=== PATIENT | male | born 1975 | race African-American/Black ===

== ENCOUNTER 2018-12-05 13:59 | Inpatient (IN) ==
--- NOTE | 2018-12-05 15:28 | Pulmonology History & Physical ---
<Josué Qiu S - Last Filed: 12/05/18 16:16> Date of Encounter: 12/05/18 Time of Encounter: 15:28 Assessment and Plan (1) DKA (diabetic ketoacidoses) Current visit: Yes Status: Acute Pt presents as a [facility] [facility] transfer in DKA - chronic T2DM on home insulin lispro and NPH, unsure of dosages - pt has c/o nausea and vomiting over the last few days, changes his story of whether he quit taking insulin or not - questionable noncompliance vs viral gastroenteritis precipitating DKA At [facility], pt received initial insulin bolus and 3 L total of 0.9% NS - glucose found to be 839 - initial sodium 118, corrected at 130 Initial blood gas showed pH 7.11, pCO2 <13, pO2 125 Anion gap at 31 Metabolic acidosis secondary to DKA Beta-hydroxybutyric acid >2 UA (+) for ketones, glucose, protein CXR negative for acute cardiopulmonary process Plan: - NPO now - zofran for nausea - SW consulted - VBG pending for 2 hrs - BMP repeat in 2 hrs, if elevated gap then q2hr... if gap has closed can space to q4-q6hr - CBC/BMP in AM with morning labs - magnesium/phosphorus stat - fluids as per DKA protocol, orders for all in for now bolus pt 2L start on 0.45% NS w/o potassium once BG <250, switch to D5 as per protocol orders for fluids with potassium in, nursing staff to switch fluids if next BMP necessitates - continue insulin drip - hold home PO meds - continue telemetry monitoring - HbA1c pending - UDS pending Qualifiers: Diabetes mellitus type: type 2 Diabetes mellitus complication detail: without coma Qualified Code(s): E11.10 - Type 2 diabetes mellitus with ketoacidosis without coma (2) EMILY (acute kidney injury) Current visit: Yes Status: Acute Creatinine from [facility] [facility] 2.71 - baseline appears to be around 0.9-1.1 - likely pre-renal from dehydration and poor PO intake Plan: - monitor BMP - continue IV hydration as above (3) Altered mental status Current visit: Yes Status: Acute Likely secondary to hyperglycemia - see plan as above - obtain UDS to r/o acute intoxication Qualifiers: Altered mental status type: unspecified Qualified Code(s): R41.82 - Altered mental status, unspecified (4) Vomiting Current visit: Yes Status: Acute Zofran 4mg IVP prn nausea. Qualifiers: Vomiting type: unspecified Vomiting Intractability: unspecified Nausea presence: unspecified Qualified Code(s): R11.10 - Vomiting, unspecified (5) Hypertension Current visit: No Status: Chronic Chronic, on cozaar and amlodipine - holding PO meds - will add IVP meds if needed Qualifiers: Hypertension type: essential hypertension Qualified Code(s): I10 - Essential (primary) hypertension (6) GERD (gastroesophageal reflux disease) Current visit: No Status: Chronic On protonix, chronic - home PO meds held Qualifiers: Esophagitis presence: esophagitis presence not specified Qualified Code(s): K21.9 - Gastro-esophageal reflux disease without esophagitis (7) T2DM (type 2 diabetes mellitus) Current visit: Yes Status: Acute T2DM on home insulin - chronic issue - on home lispro and NPH Plan: - no recent HbA1c, pending - see plan as above for DKA Qualifiers: Diabetes mellitus longterm insulin use: with longterm use Diabetes mellitus complication status: with hyperglycemia Qualified Code(s): E11.65 - Type 2 diabetes mellitus with hyperglycemia; Z79.4 - alf (current) use of insulin (8) DVT prophylaxis Current visit: Yes Status: Acute sq heparin History of Present Illness Chief complaint: DKA HPI: Mr. Mitchell is a 43 year old male with PMH of T2DM, HTN and GERD. He is here for DKA from [place] as a transfer. He initially went to [facility] [facility] ED because he started to have flu like symptoms and has been nauseated and vomiting x 2-3 days. He has fe lt weak and lethargic. He said he didn't stop taking his insulin but then states he did stop taking it and appears somewhat confused. He is not oriented to time or place but is oriented to self. He says he takes insulin at home but isn't sure how much. He does appear quite confused but denies intoxication and states he doesn't drink alcohol very often. On further questioning the pt denies any chest pain, active nausea or abd pain, SOB or difficulty breathing. He denies headache and blurry vision. The pt EKG showed EKG shows a relative sinus tachycardia with a rate of 103 bpm MS interval 180 ms. QRS duration 108 ms. QT interval 321 ms QTC 421 ms R axis of -[address]-T wave changes. He was given 3 L of 0.9% NS and was given an insulin bolus. ABG showed pH 7.11, pCO2<13, pO2 125. He was found to have an elevated gap and had multiple electrolyte abnormalities, including hyponatremia and hyperkalmia. Initial CXR showed no acute cardiopulmonary process. UA negative for acute infxn. Past Med Surg Social Fam HX - Past Medical History Medical history: diabetes, GERD, hyperlipidemia, hypertension, seizures Psychiatric history: no psych history - Past Surgical History Surgical History: non-contributory - Social History Smoking Status: Current every day smoker Smokeless Tobacco Status: No Alcohol use: occasionally Drug use: none Medications and Allergies Insulin LISPRO [HumaLOG] 6 unit SQ 2XW 07/18/16 [History] Losartan [Cozaar] 25 mg PO DAILY 07/18/16 [History] Pantoprazole Sodium [Protonix] 40 mg PO DAILY 07/18/16 [History] amLODIPine [Norvasc] 5 mg PO DAILY 07/18/16 [History] Insulin NPH Hum/Reg Insulin Hm [Humulin 70-30 Vial] 20 unit SQ BID 12/05/18 [History] Allergy/AdvReac Type Severity Reaction Status Date / Time No Known Allergies Allergy Verified 12/05/18 11:10 All Systems: The remainder of the systems were reviewed and are negative - Constitutional Constitutional: fatigue, no chills, no fever(s) - EENT Eyes: no loss of vision Nose, mouth and throat: no headache(s) - Cardiovascular Cardiovascular: no chest pain, no chest pain at rest, no dyspnea, no dyspnea on exertion - Respiratory Respiratory: no cough, no dyspnea, no dyspnea on exertion, no excessive phlegm production - Gastrointestinal Gastrointestinal: nausea, vomiting, no abdominal pain - Genitourinary Genitourinary: no urinary frequency, no urinary hesitancy - Integumentary Integumentary: no rash - Neurological Neurological: no dizziness, no weakness - Endocrine Endocrine: fatigue - Hematologic/Lymphatic Hematologic/Lymphatic: no easy bleeding, no easy bruising Physical Examination General appearance: lethargic Eyes: nonicteric ENT: oropharynx dry Effort: mildly labored Auscultation: bilateral: clear Cardiovascular: other (tacycardia, s1s2, cta) Gastrointestinal: soft, non-tender, non-distended Integumentary: normal Extremities: no edema Musculoskeletal: no deformities unable to assess due to mental status other (lethargic male) <Hanane Valentin M - Last Filed: 12/05/18 16:47> Date of Encounter: 12/05/18 History of Present Illness HPI: Mr. Mitchell is a 43 year old male All Systems: The remainder of the systems were reviewed and are negative Physical Examination Vital Signs: Vital Signs, Last 4 Hours Temp Pulse Resp BP Pulse Ox 12/05/18 16:00 107 28 148/81 98 12/05/18 15:00 97.9 F 107 28 134/75 98 - Attending Attestation I examined this patient and my medical decision-making was reviewed with the Resident Physician. I agree with the documented findings, disposition and treatment plan as described except to the extent set forth below. Patient seen and examined. Labs, radiology, chart personally reviewed. Agree with resident's history and physical, assessment, plan with following comments: ADMINISTRATIVE SERVICES DIRECTOR: Patient follows commands, however he has some mental status change which could be encephalopathy Pulmonary: Acceptable oxygenation and ventilation Cardiovascular: stable , however with his electrolyte abnormalities is at risk and that is why he needs to be in ICU GI: Nutrition per dietary and GI prophylaxis per routine. Patient will be nothing by mouth at this time Heme: DVT prophylaxis per routine ID: No evidence of infection Renal; urine out put and renal funtion reviewed area to acute renal injury 8 days prerenal and with aggressive fluid resuscitation explained that will improve. Patient also have acidosis from ketoacidosis. Endorcine: blood glucose is monitored. Patient will be treated according to DKA protocol and monitor his electrolytes carefully. Lines: all lines checked and no evidence of infections Skin: skin care to prevent pressure ulcers per nursing routine care Patient will be monitored in ICU on he will need diabetic education and possibly social sciences instructor and check urine drug tox
[2018-12-05] MEDS ORDERED: *HR* Dextrose 50 % in Water (Syg) 50 ML SYRINGE IVP PRN ×2 (15:29→15:51)
[2018-12-05] MEDS ORDERED: Insulin Human Regular 100 UNIT in 0.9 % Sodium Chloride 100 ML IVC SCH (15:30)
[2018-12-05] MEDS ORDERED: Ondansetron 4 MG/2 ML VIAL IVP PRN (15:47)
[2018-12-05] MEDS ORDERED: D5% in 0.45% NACL 1,000 ML IVC PRN (15:51)
[2018-12-05] MEDS: 0.9 % Sodium Chloride 1,000 ML IVC SCH ×2 (16:24→17:14)
[2018-12-05] MEDS: *HR* Heparin 5,000 UNIT/ML VIAL SQ SCH ×2 (17:06→21:16)
[2018-12-05 17:09] LABS: Amphetamine Screen,Urine Negative ng/mL (Cutoff=1000); Barbiturate Screen,Urine Negative ng/mL (Cutoff=200); Benzodiazepines Screen,Urine Negative ng/mL (Cutoff=200); Cannabinoid Screen,Urine Negative ng/mL (Cutoff = 50); Cocaine Screen,Urine Negative ng/mL (Cutoff= 300); Opiate Screen,Urine Negative ng/mL (Cutoff=300); Phencyclidine Screen,Urine Negative ng/mL (Cutoff=25)
[2018-12-05 17:42] LABS: Calcium 8.3 mg/dL (8.6-10.3); Potassium 4.7 mEq/L (3.5-5.1)
[2018-12-05 17:48] LABS: Magnesium 2.9 mg/dL (1.6-2.6); Phosphorous 2.6 mg/dL (2.7-4.5)
[2018-12-05 18:09] LABS: Estimated Average Glucose 169 mg/dl; Hemoglobin A1C 7.5 %
[2018-12-05] MEDS: 0.9 % Sodium Chloride w KCl 20 MEQ/1,000 ML MLS IVC SCH ×5 (19:45→22:17)
[2018-12-05] MEDS: 0.45 % Sodium Chloride w/KCl 20 MEQ/1,000 ML MLS IVC SCH ×4 (19:47→23:11)
[2018-12-05 21:06] LABS: Calcium 7.6 mg/dL (8.6-10.3)
[2018-12-05] MEDS: D5% in 0.45% NACL w KCl 20 MEQ/1,000 ML MLS IVC PRN (22:18)
[2018-12-06] MEDS: 0.9 % Sodium Chloride w KCl 20 MEQ/1,000 ML MLS IVC SCH ×4 (00:09→04:27)
[2018-12-06] MEDS: 0.45 % Sodium Chloride w/KCl 20 MEQ/1,000 ML MLS IVC SCH ×4 (00:09→04:27)
[2018-12-06 01:06] LABS: BUN/Creatinine Ratio 28 (6-26); Blood Urea Nitrogen 39 mg/dL (6-20); Calcium 7.6 mg/dL (8.6-10.3); Carbon Dioxide 18 mEq/L (23-29); Chloride 110 mEq/L (98-107); Glucose 134 mg/dL (70-105); Osmolality,Calculated 297 (280-300); Potassium 4.3 mEq/L (3.5-5.1); Sodium 138 mEq/L (136-145); eGFR For Non-African Americans 55 (> 60)
[2018-12-06 01:42] LABS: VBG HCO3 19 mEq/L (21-27); VBG PCO2 41 mmHg (41-51); VBG PH 7.27 pH Units (7.32-7.42); VBG PO2 71 mmHg (25-50)
[2018-12-06] MEDS: D5% in 0.45% NACL w KCl 20 MEQ/1,000 ML MLS IVC PRN (02:24)
[2018-12-06 03:49] LABS: VBG HCO3 21 mEq/L (21-27); VBG PCO2 46 mmHg (41-51); VBG PH 7.27 pH Units (7.32-7.42); VBG PO2 41 mmHg (25-50)
[2018-12-06 04:00] LABS: Alanine Aminotransferase 15 Units/L (7-52); Albumin 3.4 g/dL (3.5-5.7); Albumin/Globulin Ratio 1.5 (1.1-2.2); Alkaline Phosphatase 43 Units/L (34-104); Aspartate Amino Transferase 21 Units/L (13-39); BUN/Creatinine Ratio 25 (6-26); Bilirubin,Total 0.6 mg/dL (0.3-1.0); Blood Urea Nitrogen 33 mg/dL (6-20); Calcium 7.9 mg/dL (8.6-10.3); Carbon Dioxide 19 mEq/L (23-29); Chloride 109 mEq/L (98-107); Globulin 2.3 g/dL (2.4-3.5); Glucose 116 mg/dL (70-105); Osmolality,Calculated 290 (280-300); Potassium 4.2 mEq/L (3.5-5.1); Sodium 136 mEq/L (136-145); Total Protein 5.7 g/dL (6.4-8.9); eGFR For Non-African Americans 59 (> 60)
[2018-12-06] MEDS ORDERED: Insulin DETEMIR 100 UNIT/ML X5UNITS SQ SCH (04:58)
[2018-12-06] MEDS: *HR* Heparin 5,000 UNIT/ML VIAL SQ SCH ×3 (05:11→21:35)
--- NOTE | 2018-12-06 06:33 | Pulmonology Progress Note ---
<Josué Qiu S - Last Filed: 12/06/18 11:14> Date of Encounter: 12/06/18 Time of Encounter: 08:03 Assessment and Plan (1) DKA (diabetic ketoacidoses) Current Visit: Yes Status: Resolved Pt presents as a [facility] transfer in DKA - chronic T2DM on home insulin lispro and NPH, unsure of dosages - pt has c/o nausea and vomiting over the last few days, changes his story of whether he quit taking insulin or not - questionable noncompliance vs viral gastroenteritis precipitating DKA At [facility], pt received initial insulin bolus and 3 L total of 0.9% NS - glucose found to be 839 - initial sodium 118, corrected at 130 Labs this morning: sodium 138, potassium 4.3, chloride 110, glucose 134 On admission: Initial blood gas showed pH 7.11, pCO2 <13, pO2 125 - Metabolic acidosis secondary to DKA Anion gap at 31 ---> 10, gap has closed Repeat VBG this morning pH 7.29, pCO2 42, pO2 49, HCO3 20 Beta-hydroxybutyric acid >2 UA (+) for ketones, glucose, protein CXR negative for acute cardiopulmonary process Plan: - ADA diet for breakfast - zofran for nausea - SW consulted - CBC/BMP in AM with morning labs - continue with D5 0.45 until pt is tolerating PO intake - insulin drip d/c, has been switched over to LDSS and SQ insulin - hold home PO meds - pt to be transferred to out of ICU this morning Qualifiers: Diabetes mellitus type: type 2 Diabetes mellitus complication detail: with out coma Qualified Code(s): E11.10 - Type 2 diabetes mellitus with ketoac idosis without coma (2) EMILY (acute kidney injury) Current Visit: Yes Status: Acute Creatinine from [facility] 2.71 - baseline appears to be around 0.9-1.1 - likely pre-renal from dehydration and poor PO intake Creatinine improved to 1.40 this morning, improving Plan: - monitor BMP - continue IV hydration as above (3) Altered mental status Current Visit: Yes Status: Resolved Likely secondary to hyperglycemia - see plan as above - UDS negative Qualifiers: Altered mental status type: unspecified Qualified Code(s): R41.82 - Altered mental status, unspecified (4) Vomiting Current Visit: Yes Status: Resolved Zofran 4mg IVP prn nausea. Qualifiers: Vomiting type: unspecified Vomiting Intractability: unspecified Nausea presence: unspecified Qualified Code(s): R11.10 - Vomiting, unspecified (5) Hypertension Current Visit: No Status: Chronic Chronic, on cozaar and amlodipine - restart norvasc Qualifiers: Hypertension type: essential hypertension Qualified Code(s): I10 - Essential (primary) hypertension (6) GERD (gastroesophageal reflux disease) Current Visit: No Status: Chronic On protonix, chronic - restart protonix Qualifiers: Esophagitis presence: esophagitis presence not specified Qualified Code(s): K21.9 - Gastro-esophageal reflux disease without esophagitis (7) T2DM (type 2 diabetes mellitus) Current Visit: Yes Status: Acute T2DM on home insulin - chronic issue - on home lispro and NPH HbA1c 7.5% Plan: - see plan as above for DKA - ADA diet - LDSS, sq insulin 10 U BID Qualifiers: Diabetes mellitus care home insulin use: with care home use Diabetes mellitus complication status: with hyperglycemia Qualified Code(s): E11.65 - Type 2 diabetes mellitus with hyperglycemia; Z79.4 - prison (current) use of insulin (8) DVT prophylaxis Current Visit: Yes Status: Acute sq heparin (9) Tobacco abuse Current Visit: No Status: Chronic current everyday smoker. Subjective Principal diagnosis: DKA, T2DM Interval history: Patient is seen at bedside. He had no acute overnight events. He is still quite lethargic. No acute complaints or concerns. Objective PUL Vital signs: Last Vital Signs Temp 99.0 F 12/06/18 03:00 Pulse 90 12/06/18 06:00 Resp 30 12/06/18 06:00 BP 132/83 12/06/18 06:00 Pulse Ox 98 12/06/18 06:00 General appearance: no acute distress, lethargic Eyes: nonicteric ENT: oropharynx moist Effort: normal Auscultation: bilateral: clear Cardiovascular: regular rate and rhythm Gastrointestinal: soft, non-tender, non-distended Integumentary: normal Extremities: no edema Musculoskeletal: no deformities normal mental status, non-focal exam other (lethargic) Results - Laboratory Findings CBC and BMP: 12/06/18 03:30 Abnormal lab findings: Abnormal lab results VBG pH 7.27 pH Units (7.32-7.42) L 12/06/18 03:46 Chloride 109 mEq/L (98-107) H 12/06/18 03:30 Carbon Dioxide 19 mEq/L (23-29) L 12/06/18 03:30 BUN 33 mg/dL (6-20) H 12/06/18 03:30 Creatinine 1.32 mg/dL (0.70-1.30) H 12/06/18 03:30 Est GFR (Non-Af Amer) 59 (> 60) L 12/06/18 03:30 Glucose 116 mg/dL (70-105) H 12/06/18 03:30 POC Glucose 133 mg/dL (70-99) H 12/06/18 00:05 Hemoglobin A1c 7.5 % (-5.6) H 12/05/18 16:46 Calcium 7.9 mg/dL (8.6-10.3) L 12/06/18 03:30 Phosphorus 2.6 mg/dL (2.7-4.5) L 12/05/18 16:46 Magnesium 2.9 mg/dL (1.6-2.6) H 12/05/18 16:46 Serum Total Protein 5.7 g/dL (6.4-8.9) L 12/06/18 03:30 Albumin 3.4 g/dL (3.5-5.7) L 12/06/18 03:30 Globulin 2.3 g/dL (2.4-3.5) L 12/06/18 03:30 - Clinical Findings Intake & Output: Intake & Output 12/05/18 12/05/18 12/06/18 15:59 23:59 07:59 Intake Total 3082.3 / 3082.3 1038 / 1038 Output Total 1550 / 1550 1370 / 1370 Balance 1532.3 / 1532.3 -332 / -332 Weight 97.3 kg 97.8 kg Consult Discharge Plan - Plan Referrals: NONE,PCP [Primary Care Provider] - <Hanane Valentin - Last Filed: 12/06/18 16:38> Date of Encounter: 12/06/18 Objective PUL Vital signs: Last Vital Signs Temp 98.2 F 12/06/18 16:03 Pulse 96 12/06/18 16:03 Resp 16 12/06/18 16:03 BP 130/85 12/06/18 16:03 Pulse Ox 96 12/06/18 16:03 Results - Laboratory Findings CBC and BMP: 12/06/18 03:30 Abnormal lab findings: Abnormal lab results VBG pH 7.29 pH Units (7.32-7.42) L 12/06/18 06:37 VBG HCO3 20 mEq/L (21-27) L 12/06/18 06:37 Chloride 109 mEq/L (98-107) H 12/06/18 03:30 Carbon Dioxide 19 mEq/L (23-29) L 12/06/18 03:30 BUN 33 mg/dL (6-20) H 12/06/18 03:30 Creatinine 1.32 mg/dL (0.70-1.30) H 12/06/18 03:30 Est GFR (Non-Af Amer) 59 (> 60) L 12/06/18 03:30 Glucose 116 mg/dL (70-105) H 12/06/18 03:30 POC Glucose 133 mg/dL (70-99) H 12/06/18 00:05 Hemoglobin A1c 7.5 % (-5.6) H 12/05/18 16:46 Calcium 7.9 mg/dL (8.6-10.3) L 12/06/18 03:30 Phosphorus 2.6 mg/dL (2.7-4.5) L 12/05/18 16:46 Magnesium 2.9 mg/dL (1.6-2.6) H 12/05/18 16:46 Serum Total Protein 5.7 g/dL (6.4-8.9) L 12/06/18 03:30 Albumin 3.4 g/dL (3.5-5.7) L 12/06/18 03:30 Globulin 2.3 g/dL (2.4-3.5) L 12/06/18 03:30 - Clinical Findings Intake & Output: Intake & Output 12/06/18 12/06/18 12/06/18 07:59 15:59 23:59 Intake Total 2037 360 / 360 0 / 0 Output Total 1370 / 1370 Balance 668 / 668 360 / 360 0 / 0 Weight 97.8 kg - Attending Attestation I examined this patient and my medical decision-making was reviewed with the Resident Physician. I agree with the documented findings, disposition and treatment plan as described except to the extent set forth below. Patient seen and examined. Labs, radiology, chart personally reviewed. Agree with resident's history and physical, assessment, plan with following comments: WHANAU SUPPORT WORKER: Patient follows commands, Pulmonary: Acceptable oxygenation and ventilation Cardiovascular: stable GI: Nutrition per dietary and GI prophylaxis per routine and dietary to see patient Heme: DVT prophylaxis per routine ID: No evidence of any infectious source. Renal; urine out put and renal funtion reviewed Endorcine: blood glucose is monitored. Patient has completed DKA protocol and an ion gap has closed and feeling better. Resume home dose insulin and adjust if necessary. Lines: all lines checked and no evidence of infections Skin: skin care to prevent pressure ulcers per nursing routine care Patient stable to be transferred to the floor.
[2018-12-06 06:39] LABS: VBG HCO3 20 mEq/L (21-27); VBG PCO2 42 mmHg (41-51); VBG PH 7.29 pH Units (7.32-7.42); VBG PO2 49 mmHg (25-50)
[2018-12-06] MEDS ORDERED: amLODIPine 5 MG TABLET PO SCH (09:00)
[2018-12-06] MEDS ORDERED: Ondansetron 4 MG/2 ML VIAL IVP PRN (10:09)
[2018-12-06] MEDS ORDERED: *HR* Dextrose 50 % in Water (Syg) 50 ML SYRINGE IVP PRN (10:09)
[2018-12-06] MEDS ORDERED: D5% in Water 1,000 ML IVC PRN (10:16)
[2018-12-06] MEDS ORDERED: Dextrose Gel 15 GM/37.5 ML TUBE PO PRN ×2 (10:16)
[2018-12-06] MEDS ORDERED: Dextrose 4 GM Chewable Tablets PO PRN ×2 (10:16)
[2018-12-06] MEDS ORDERED: Insulin LISPRO 300 UNITS/3 ML VIAL SQ SCH (11:30)
[2018-12-06] MEDS: Insulin LISPRO 300 UNITS/3 ML VIAL SQ SCH ×2 (11:57→16:06)
[2018-12-06] MEDS: Insulin DETEMIR 100 UNIT/ML X5UNITS SQ SCH (21:35)
[2018-12-07 04:45] LABS: Basophils % 0.2 %; Eosinophils # 0.2 K/mcL (0.0-0.6); Eosinophils % 3.4 %; Hematocrit 39.8 % (37.5-50.1); Hemoglobin 13.5 g/dL (12.9-16.9); Immature Granulocytes % 0.2 % (0-4); Lymphocytes # 0.7 K/mcL (0.6-4.6); Lymphocytes % 12.3 %; Mean Corpuscular HGB Conc 33.9 g/dL (31.6-35.5); Mean Corpuscular Hemoglobin 29.7 pg (28.0-33.3); Mean Corpuscular Volume 87.7 fL (83.0-100.0); Mean Platelet Volume 10.6 fL (9.4-12.4); Monocytes # 0.8 K/mcL (0.0-1.3); Monocytes % 14.2 %; Neutrophils # 3.9 K/mcL (1.6-8.9); Platelet Count 172 K/mcL (140-400); Red Blood Count 4.54 M/mcL (4.19-5.50); Red Cell Distribution Width 11.5 % (11.5-14.5); Segmented Neutrophils % 69.7 %
[2018-12-07 05:04] LABS: BUN/Creatinine Ratio 14 (6-26); Blood Urea Nitrogen 16 mg/dL (6-20); Carbon Dioxide 22 mEq/L (23-29); Chloride 98 mEq/L (98-107); Glucose 340 mg/dL (70-105); Osmolality,Calculated 287 (280-300); Sodium 131 mEq/L (136-145); eGFR For Non-African Americans > 60 (> 60)
[2018-12-07] MEDS: *HR* Heparin 5,000 UNIT/ML VIAL SQ SCH ×3 (06:13→21:53)
[2018-12-07] MEDS: Insulin DETEMIR 100 UNIT/ML X5UNITS SQ SCH (08:34)
[2018-12-07] MEDS: amLODIPine 5 MG TABLET PO SCH (08:34)
[2018-12-07] MEDS: Insulin LISPRO 300 UNITS/3 ML VIAL SQ SCH ×3 (08:35→17:21)
[2018-12-07] MEDS ORDERED: Famotidine 20 MG TABLET PO ONE (14:57)
[2018-12-07] MEDS: Insulin NPH/REG 70/30 100 UNIT/ML (x5UNIT) SQ SCH (17:20)
--- NOTE | 2018-12-07 19:41 | Internal Med Progress Note ---
Hospitalist Progress Note - Encounter Date of Encounter: 12/07/18 Time of Encounter: 11:00 - Subjective Interval History: She presented with DKA secondary to not taking his insulin as reports of running out due to financial barriers. DKA has resolved Case management assisting with financial barriers Will place patient on 70/30 insulin this evening for monitoring - Exam Vitals: Temp Pulse Resp BP Pulse Ox 98.0 F 94 17 144/95 94 12/07/18 15:45 12/07/18 15:45 12/07/18 15:45 12/07/18 15:45 12/07/18 15:45 Exam: Gen.: Nonacute distress, alert and oriented 3 ENT: Mucosal membranes moist Respiratory: Lungs are clear to auscultation bilaterally without any wheezing rhonchi or rales Cardiovascular: Normal S1 and S2 regular rate rhythm no murmurs rubs or gallops Abdomen: Soft, nontender and nondistended with positive bowel sounds Extremities: No lower extremity edema Skin: Normal color - Assessment and Plan (1) DKA (diabetic ketoacidoses) Current Visit: Yes Status: Resolved Assessment and Plan: Resolved; Will monitor overnight on 70/30 insulin (2) EMILY (acute kidney injury) Current Visit: Yes Status: Acute Assessment and Plan: Resolved; secondary to DKA above - Time Spent with Patient Total time spent is greater than 50% in coordination of care (as documented) at patient's floor/unit and/or counseling patient: Internal Medicine: Result - Labs CBC & Chem 7: 12/07/18 04:17 12/07/18 04:17 Labs: Short CBC 12/07/18 Range/Units 04:17 WBC 5.6 D (4.3-11.1) K/mcL Hgb 13.5 D (12.9-16.9) g/dL Hct 39.8 (37.5-50.1) % Plt Count 172 (140-400) K/mcL Neutrophils # 3.9 (1.6-8.9) K/mcL BMP 12/07/18 04:17 Sodium 131 L Potassium 4.0 Chloride 98 Carbon Dioxide 22 L BUN 16 Creatinine 1.11 Glucose 340 H Calcium 9.0 Consult Discharge Plan - Plan Referrals: NONE,PCP [Primary Care Provider] - (1) DKA (diabetic ketoacidoses) Qualifiers: Diabetes mellitus type: type 2 Diabetes mellitus complication detail: without coma Qualified Code(s): E11.10 - Type 2 diabetes mellitus with ketoacidosis without coma
[2018-12-08] MEDS: *HR* Heparin 5,000 UNIT/ML VIAL SQ SCH (06:56)
[2018-12-08] MEDS: Insulin LISPRO 300 UNITS/3 ML VIAL SQ SCH ×2 (08:38→12:39)
[2018-12-08] MEDS: amLODIPine 5 MG TABLET PO SCH (08:42)
[2018-12-08] MEDS: Insulin NPH/REG 70/30 100 UNIT/ML (x5UNIT) SQ SCH (08:42)
[2018-12-08 11:53] VITALS: BP 123/76
[2018-12-08] MEDS ORDERED: Insulin NPH/REG 70/30 100 UNIT/ML (x5UNIT) SQ SCH (16:30)
--- NOTE | 2018-12-08 17:03 | Discharge Summary ---
- NOTES TO OUTPATIENT PROVIDER Notes to Outpatient Provider: Follow-up with PCP Date of Encounter: 12/08/18 Time of Encounter: 11:00 - Discharge Diagnosis (1) DKA (diabetic ketoacidoses) Priority: Primary Status: Resolved Qualifiers: Diabetes mellitus type: type 2 Diabetes mellitus complication detail: without coma Qualified Code(s): E11.10 - Type 2 diabetes mellitus with ketoacidosis without coma (2) EMILY (acute kidney injury) Priority: Secondary Status: Acute Hospital course: Patients a 43-year-old male past medical history significant for T2DM, HTN and GERD who presented from [facility] as a transfer due to DKA. During patients hospital stay his DKA resolved on insulin drip which was discontinued after starting long-acting insulin. Patients blood. This remained stable and will be discharged home to continue insulin 70/30. Patient will need to follow up with primary care provider for diabetes management. - Time Spent with Patient Total time spent providing and/or coordinating discharge services: - Discharge Medications Prescriptions: New Insulin NPH/REG 70/30 (HUMAN) [Humulin 70/30 Vial] 25 unit SQ BIDAC #60 [id number] Continue Amlodipine Besylate 10 mg PO DAILY Losartan Potassium [Cozaar] 50 mg PO DAILY Atorvastatin [Lipitor] 10 mg PO HS Pantoprazole Sodium [Protonix] 40 mg PO DAILY Discontinued Insulin Glargine,Hum.rec.anlog [Lantus Solostar] 15 unit SQ HS Insulin LISPRO [HumaLOG] 15 unit SQ TIDWM Home Medications: Pantoprazole Sodium [Protonix] 40 mg PO DAILY 07/18/16 [History] Amlodipine Besylate 10 mg PO DAILY 12/06/18 [History] Atorvastatin [Lipitor] 10 mg PO HS 12/06/18 [History] Losartan Potassium [Cozaar] 50 mg PO DAILY 12/06/18 [History] Insulin NPH/REG 70/30 (HUMAN) [Humulin 70/30 Vial] 25 unit SQ BIDAC #60 [id number] 12/08/18 [Rx] Allergies/Adverse Reactions: Allergy/AdvReac Type Severity Reaction Status Date / Time No Known Allergies Allergy Verified 12/06/18 08:53 Date of admission: 12/05/18 15:13 Primary care physician: PCP NONE Consults: 12/05/18 16:05 Consult to Tomato Paste Maker [CONS] Routine Reason for SW Consult: medication compliance - Constitutional Vitals: Temp Pulse Resp BP Pulse Ox 98.3 F 107 20 123/76 93 12/08/18 11:40 12/08/18 11:40 12/08/18 11:40 12/08/18 11:40 12/08/18 11:40 Exam: Gen.: Nonacute distress, alert and oriented 3 Skin: Normal color - Patient Status Disposition: Home, Self-Care - Discharge Instructions Instructions: Diabetic Ketoacidosis (DC), Diabetic Foot Care (DC), Diabetes Mellitus Type 2 in Adults (DC) Follow Up With: Rolan Yee, EXTERNAL AUDITOR [Advanced Practice Nurse] - (Please call and schedule a hospital follow up for 5-7 days out. Thank you!)
== END 2018-12-08 17:53 | disposition home or self-care (01) | DRG 420 ==
LOC: SUATTDRO 15:13 → ICNU 15:13 → 2ANU 12-06 10:05
PROVIDERS: ADMIT Internal Medicine Pulmonary Disease; ATTEND Hospitalist